=== PATIENT | male | born 1935 | race Hispanic/Latino ===

== ENCOUNTER → 2018-02-26 | Outpatient (CLI) | payer OTHER ==
[~2018-02-26] MED LIST: LISI-613 PO; TAMS0.4C32 PO
== END | disposition home or self-care (01) ==
LOC: OIH 13:07
PROVIDERS: ATTEND Internal Medicine Cardiovascular Disease
DX: Z13.6 Encounter for screening for cardiovascular disorders (principal)
CPT/HCPCS: 75571

== ENCOUNTER 2018-05-22 09:39 | Day surgery (SDC) | payer OTHER ==
[2018-05-20 15:49] VITALS: BP 119/68
[2018-05-20 16:01] LABS: APPEARANCE,URINE SL CLOUDY (CLEAR); BILIRUBIN,URINE NEGATIVE (NEGATIVE); COLOR,URINE YELLOW (YELLOW); GLUCOSE, URINE (UA) NEGATIVE (NEGATIVE); KETONES,URINE 5 mg/dL (NEGATIVE); LEUKOCYTE ESTERASE ,URINE TRACE (NEGATIVE); NITRATE,URINE NEGATIVE (NEGATIVE); OCCULT BLOOD,URINE MODERATE (NEGATIVE); PROTEIN,URINE TRACE (NEGATIVE)
[2018-05-20 16:14] LABS: INR 0.95 (0.85-1.15)
[2018-05-20 16:19] LABS: CREATININE 0.9 mg/dL (0.5-1.5); POTASSIUM 3.7 mmol/L (3.5-5.1)
[2018-05-20 16:23] LABS: BACTERIA,URINE Few /HPF (None Seen); MUCUS,URINE Moderate LPF (None Seen); SPERM,URINE Moderate /HPF (None Seen); SQUAMOUS EPITHELIAL CELL,UR Rare /HPF (0-2)
[2018-05-20 16:24] LABS: AMORPHOUS SEDIMENT,UR Rare /LPF (None Seen)
[2018-05-20 16:29] LABS: BASOPHILS % (AUTO) 0.9 % (0.0-5.0); EOSINOPHILS % (AUTO) 1.9 % (0.0-8.0); HEMATOCRIT 36.5 % (42-54); LYMPHOCYTES % (AUTO) 22.8 % (21.0-51.0); MEAN CORPUSCULAR HEMOGLOBIN 31.3 pg (27.0-33.0); MEAN CORPUSCULAR HGB CONC 33.9 g/dL (32.0-36.0); MEAN CORPUSCULAR VOLUME 92.4 fL (79-99); MONOCYTES % (AUTO) 11.7 % (3.0-13.0); NEUTROPHILS % (AUTO) 62.7 % (40.0-77.0); PLATELET COUNT (AUTO) 219 K/uL (130-400); RED BLOOD CELL COUNT(AUTO) 3.94 MIL/uL (4.50-6.20); RED CELL DISTRIBUTION WIDTH 12.7 % (11.0-15.5); WHITE BLOOD COUNT (AUTO) 6.5 K/uL (4.8-10.8)
--- NOTE | 2018-05-20 16:58 | NUR ---
note REPORTED ABNORMAL EKG TO DR NUNO, COMPARED WITH OLD EKG . NO FURTHER ORDER GIVEN. PT WAS SEEN BY REVIVAL CLERK DR VALERIO IN Feb AND NOTE STATES PT HAD A HIGH CALCIUM SCORE, AND WAS RECOMMENDED TO HAVE STRESS TEST DONE BUT PATIENT REFUSED .
[2018-05-21] MEDS: CEFTRIAXONE SODIUM 1 GM IVP SCH (06:00)
--- NOTE | 2018-05-21 12:43 | NUR ---
NOTE REPORTED ABNORMAL UA , PER CHINO ZHOU FINGERS NURSE , NO FURTHER ORDERS
[2018-05-22] VITALS (14 sets, daily range): BP systolic 126–168; BP diastolic 70–99
[~2018-05-22] VITALS: Ht 162.6 cm; Wt 75.1 kg
[~2018-05-22 09:39] MED LIST changes: +FINA5TAB41 PO; +GENTAMICIN SULFATE 320 MG in SODIUM CHLORIDE 0.9% 100 ML IV SCH; +LEVO25TA54 PO; -LISI-613 PO; +LISI1TAB13 PO; +PRAV10TA39 PO; +SERT50TA12 PO
[2018-05-22] MEDS ORDERED: CEFTRIAXONE SODIUM 1 GM ONE (10:41)
[2018-05-22] MEDS ORDERED: LACTATED RINGERS 1000ML 1,000 ML IV ONE (10:41)
[2018-05-22] MEDS ORDERED: GENTAMICIN SULFATE 320 MG in SODIUM CHLORIDE 0.9% 100 ML IV SCH (10:45)
--- NOTE | 2018-05-22 10:57 | NUR ---
PAIN pt was seen in the ER at [facility] on Sat with nausa vomiting and right flank pain Addendum: 05/22/18 at 1104 by KERWIN FISHER RN RN Amended: Links added.
[2018-05-22] MEDS ORDERED: LIDOCAINE PF 2% 5ML ABBOJECT ONE ×2 (11:23→11:24)
[2018-05-22] MEDS ORDERED: ROCURONIUM 10MG/1ML SYR 10 MG/ML ML ONE (11:23)
[2018-05-22] MEDS ORDERED: FENTANYL CITRATE PF 50 MCG/1 ML 2ML VIAL ONE (11:23)
[2018-05-22] MEDS ORDERED: PROPOFOL 10 MG/ML 20ML VIAL IV ONE (11:23)
[2018-05-22] MEDS ORDERED: GLYCOPYRROLATE 1 MG/5 ML SYRINGE ONE (11:23)
[2018-05-22] MEDS ORDERED: NEOSTIGMINE 5MG/5ML SYR IV ONE (11:23)
[2018-05-22] MEDS ORDERED: DEXAMETHASONE SOD PHOSPHATE 10MG/ML 1ML VIAL ONE (11:23)
[2018-05-22] MEDS ORDERED: SUCCINYLCHOLINE 200MG/10ML SYR ONE (11:23)
[2018-05-22] MEDS: CEFTRIAXONE SODIUM 1 GM IVP SCH (11:30)
[2018-05-22] MEDS ORDERED: EPHEDRINE SULFATE 50 MG/ML AMPULE ONE (11:56)
[2018-05-22] MEDS ORDERED: OPIUM/BELLADONNA ALKALOIDS 1 EACH SUPP.RECT RC ONE (13:34)
[2018-05-22] MEDS ORDERED: BACITRACIN 1 EACH PACKET TP ONE (15:18)
--- NOTE | 2018-05-22 15:30 | NUR ---
NOTIFIED DR. KEYS , PT HAS QUATER SIZE BLISTER TO LT LATERAL SIDE OF PENIS, STATES HE IS AWARE AND IS FINE NO NEW ORDERS RECEIVED. PT STABLE, NO DISTRESS. DURANT BAG CARE INSTRUCTIONS GIVEN TO AND EXTRA SUPPLIES. PT DRIVEN HOME BY DAUGHTER.
== END 2018-05-22 15:30 | disposition home or self-care (01) ==
LOC: DAH 09:39
PROVIDERS: ATTEND Urology
DX: N40.1 Benign prostatic hyperplasia with lower urinary tract symptoms (principal); N39.41 Urge incontinence; R35.1 Nocturia; N21.0 Calculus in bladder; I10 Essential (primary) hypertension; Z79.899 Other long term (current) drug therapy; F32.9 Major depressive disorder, single episode, unspecified; E78.5 Hyperlipidemia, unspecified; Z98.890 Other specified postprocedural states; Z83.3 Family history of diabetes mellitus; I25.10 Atherosclerotic heart disease of native coronary artery without angina pectoris
CPT/HCPCS: 36415; 52317; 52648; 71045; 80048; 81001; 85025; 85610; 87077 ×2; 87088; 87186 ×2; 93005; A4354; A4358; A4600; C1758; J0330; J0696; J1100; J1580 ×2; J2001 ×2; J2704; J2710; J3010; J3490 ×2; J7030; J7120

== ENCOUNTER → 2018-07-11 | Outpatient (CLI) | payer OTHER ==
[~2018-07-11] MED LIST changes: -GENTAMICIN SULFATE 320 MG in SODIUM CHLORIDE 0.9% 100 ML IV SCH; +REGADENOSON 0.4 MG/5 ML PF SYG IVP SCH
== END | disposition home or self-care (01) ==
LOC: SHCH 08:27
PROVIDERS: ATTEND Internal Medicine Cardiovascular Disease
DX: I25.9 Chronic ischemic heart disease, unspecified (principal); I10 Essential (primary) hypertension
CPT/HCPCS: 78452; 93017; 96374; A9500 ×2; J2785